=== PATIENT | female | born 1955 | race Caucasian/White ===

== ENCOUNTER 2019-02-19 06:02 | Inpatient (IN) | payer OTHER ==
[2019-02-17 17:20] VITALS: BMI 37.5
[2019-02-19] MEDS ORDERED: oxyCODONE HCL 10 MG SUSTAINED ACTING TABLET PO STA (07:19)
[2019-02-19] MEDS ORDERED: PROPOFOL 20 ML ONE (07:25)
[2019-02-19] MEDS ORDERED: DEXAMETHASONE SOD PHOSPHATE 4 MG/1 ML VIAL ONE (07:25)
[2019-02-19] MEDS ORDERED: LIDOCAINE HCL/PF 2% SDV 5ML VIAL ONE (07:25)
[2019-02-19] MEDS ORDERED: KETOROLAC TROMETHAMINE 30 MG/1 ML VIAL ONE (07:25)
[2019-02-19] MEDS ORDERED: ACETAMINOPHEN INJECTION 100 ML IVPB ONE ×2 (07:27→07:44)
[2019-02-19] MEDS ORDERED: SUCCINYLCHOLINE CHLORIDE 200 MG/10 ML VIAL ONE (07:28)
[2019-02-19] MEDS ORDERED: ceFAZolin SODIUM 1 GM VIAL ONE (07:28)
[2019-02-19] MEDS ORDERED: SODIUM CHLORIDE 0.9% P/F 10 ML VIAL IJ ONE (07:28)
--- NOTE | 2019-02-19 07:31 | HP ---
History & Physical Update - History History: No Change - Physical Physical: No Change - Assessment Assessment: No Change - Plan Plan: No Change
[2019-02-19] MEDS ORDERED: ONDANSETRON 4 MG/2 ML VIAL ONE (07:32)
[2019-02-19] MEDS ORDERED: MIDAZOLAM HCL 2 MG/2 ML SINGLE DOSE VIAL ONE ×2 (07:43→09:35)
[2019-02-19] MEDS ORDERED: BUPIVACAINE LIPOSOME/PF (EXPAREL) 266 MG/20 ML VIAL ONE (07:44)
[2019-02-19] MEDS ORDERED: GELATIN, ABSORBABLE 12-7MM EACH SPONGE TP ONE (07:50)
[2019-02-19] MEDS ORDERED: THROMBIN (RECOMBINANT) 5,000 UNIT VIAL TP ONE (07:50)
[2019-02-19] MEDS ORDERED: ONDANSETRON 4 MG/2 ML VIAL IVPUSH PRN ×2 (08:26→11:18)
[2019-02-19] MEDS ORDERED: oxyCODONE HCL 5 MG TABLET PO PRN ×4 (08:26→11:18)
[2019-02-19] MEDS ORDERED: LACTATED RINGERS SOLUTION 1,000 ML IV SCH ×2 (08:30→11:30)
[2019-02-19] MEDS ORDERED: GUM MASTIC/STORAX/MSAL/ALCOHOL 1 DRP DROPSBTL MC ONE (10:45)
[2019-02-19] MEDS ORDERED: KETOROLAC TROMETHAMINE 30 MG/1 ML VIAL IVPUSH PRN (11:18)
--- NOTE | 2019-02-19 11:18 | OP ---
Operative Note - Note: Operative Date: 02/19/19 Pre-Operative Diagnosis: lumbar spondylolisthesis Operation: posterior lumbar decompression, instrumentation, fusion. Transforaminal interbody lumbar fusion of L5-S1 with allograft and neuromonitoring Surgeon: Joao Muñoz Coagulation Operator: Kierra Rodriguez Anesthesiologist/AWNING ERECTOR: Khurram Muñiz Anesthesia: Spinal Estimated Blood Loss (mls): 30 Fluid Volume Replaced (mls): 650 Operative Report Dictated: Yes
[2019-02-19] MEDS ORDERED: MONTELUKAST NA 10 MG TABLET PO PRN (11:25)
--- NOTE | 2019-02-19 11:35 | SURG ---
Surgery Mold Injector Note Mold Injector: Kierra Rodriguez PA-C Date of Service: 02/19/19 Diagnosis: lumbar spondylolisthesis Procedure: posterior lumbar decompression, instrumentation, fusion. Transforaminal interbody lumbar fusion of L5-S1 with allograft and neuromonitoring I was present for the entirety of the operative procedure. For further detail, please refer to operative report. Visit type - Case Type Case Type: Scheduled - Emergency Emergency Visit: No - New patient This patient is new to me today: Yes Date on this admission: 02/19/19
--- NOTE | 2019-02-19 12:21 | OP ---
DATE OF OPERATION: 02/19/2019 PREOPERATIVE DIAGNOSIS: L5-S1 spondylolisthesis. POSTOPERATIVE DIAGNOSIS: L5-S1 spondylolisthesis. PROCEDURES PERFORMED: 1. Transforaminal lumbar interbody fusion, L5-S1. 2. Placement of instrumentation, L5-S1. 3. Placement of cage. SURGEON: Joao Muñoz MD BENDING ROLL OPERATOR: CHERELLE Roblero ESTIMATED BLOOD LOSS: 50 mL. INTRAVENOUS FLUID: Per Anesthesia. ANESTHESIA: Spinal/TLIP. COMPLICATIONS: There were none. DISPOSITION: Patient brought to the PACU in stable condition. INDICATIONS FOR SURGERY: The patient is a 63-year-old female who has been suffering from pain from her back down her legs. X-rays and MRI were completed, which noted that she had spinal stenosis at L5-S1 secondary to spondylolisthesis. She had gone through an exhaustive course of treatment for this which included medications, physical therapy, as well as injections. Unfortunately, her pain continued to persist despite all this. At this point, risks and benefits were discussed, and the patient consented to surgery. OPERATIVE NOTE: Patient was brought to the operating room by anesthesia staff. After appropriate patient identification was performed, spinal anesthesia was given, a TLIP block was also given. Patient was able to position herself prone onto the OR table and avoid all bony prominences. Two needles were placed into the back to beatrice off the L5-S1 level. X-ray was brought in. The pedicles of L5-S1 were marked off. Her back was prepped and draped in a sterile manner. At this point, a time-out was completed. Incisions were made bilaterally over the L5-S1 pedicles. Dissection was carried down to the fascia. Fascia was split at this time. Under C-arm guidance, trocars were advanced into both the L5-S1 pedicles. Through the trocar, wire was inserted. Over the wire, tap was performed and screws inserted. On the left hand side, retractor blades were set up to expose the L5-S1 facet joint. The facet joint was removed. The disc was entered using a series of pituitary, Kerrisons, and curettes. The discectomy was completed. The endplates were decorticated at this time. Bone graft was laid down. A cage filled with bone graft was placed in. Tulip heads were placed over the screws. A anjana was measured and placed in and compression was applied. On the hand side, a anjana was measured and placed in, capsule compression was applied. AP and lateral x-rays confirmed the instrumentation to be in good position. The fascia was closed with a No. 1 Vicryl suture. The subcutaneous tissues were closed with 2-0 Vicryl suture. Skin was closed with 3-0 Monocryl suture. Dermabond was applied. Steri-Strips were applied. Sterile dressings were applied. Patient was placed supine on the OR bed and brought to the PACU in stable condition. Julieth [id number]
[2019-02-19] MEDS ORDERED: diazePAM 2 MG TABLET PO SCH (13:00)
[2019-02-19] MEDS ORDERED: oxyCODONE HCL 5 MG TABLET ONE (13:53)
[2019-02-19 14:07] VITALS: TEMP 97.6
[2019-02-19] MEDS ORDERED: CEFAZOLIN 1 GM/D5W 1 GM/50 ML BAG IVPB SCH (16:00)
[2019-02-19] MEDS ORDERED: diazePAM 2 MG TABLET ONE (16:05)
[2019-02-19] MEDS ORDERED: ACETAMINOPHEN 325 MG TABLET (FP) PO SCH (17:00)
[2019-02-19 18:39] VITALS: BP 142/86; PULSE 78
[2019-02-19] MEDS ORDERED: OXYBUTYNIN CHLORIDE 5 MG TABLET PO SCH (22:00)
[2019-02-19] MEDS ORDERED: oxyCODONE HCL 10 MG SUSTAINED ACTING TABLET PO SCH (22:00)
[2019-02-20] MEDS ORDERED: LEVOTHYROXINE NA 100 MCG TABLET (FP) PO SCH (07:00)
[2019-02-20] MEDS ORDERED: PATIENT'S OWN MEDICATION (NON-FORMULARY) (Multivitamin,Ther And Minerals [Vitamin And Mine PO SCH (10:00)
[2019-02-20] MEDS ORDERED: CHOLECALCIFEROL (VIT D3) 1,000 UNIT (25 MCG) TABLET PO SCH (10:00)
[2019-02-20] MEDS ORDERED: MULTIVITAMINS THER W-MINERALS COMBO TABLET (FP) PO SCH (10:00)
== END 2019-02-19 18:00 | disposition home or self-care (01) | DRG 460 ==
LOC: FM/S 06:02
PROVIDERS: ADMIT Orthopaedic Surgery Orthopaedic Surgery of the Spine; ATTEND Orthopaedic Surgery Orthopaedic Surgery of the Spine
PROC: 00NY0ZZ Release Lumbar Spinal Cord, Open Approach (ICD-10-PCS; 2019-02-19)
PROC: 0SB40ZZ Excision of Lumbosacral Disc, Open Approach (ICD-10-PCS; 2019-02-19)
PROC: 4A11X4G Monitoring of Peripheral Nervous Electrical Activity, Intraoperative, External Approach (ICD-10-PCS; 2019-02-19)
PROC: 0SG30AJ Fusion of Lumbosacral Joint with Interbody Fusion Device, Posterior Approach, Anterior Column, Open Approach (ICD-10-PCS; principal; 2019-02-19 09:23)
DX: M43.16 Spondylolisthesis, lumbar region (principal)
CPT/HCPCS: 72100-TC-FY; 94760; J0131